=== PATIENT | male | born 2000 | race Caucasian/White ===

== ENCOUNTER 2025-01-31 14:00 | Emergency (ER) | payer SELFPAY ==
--- OUTSIDE RECORDS SUMMARY | 2025-01-31 14:07 | XMS_ITS | Encounter Summary ---
Author Organization [facility] Address [address] [place] [address] Care Team Providers Care Cemetery Counselor Name Role Phone Martha Goodwin MD Primary Care Provider [phone]- [phone] Encounter Details Date Type Department Care Team (Latest Contact Info) Description 02/28/2007 Outpatient Historical [facility] Family Medicine- [place] [address] [place] [phone] Josy Garcia MD NO ADDRESS ON FILE Acute Upper Respiratory Infections of Unspecified Site (Primary Dx) Social History Tobacco Use Types Packs/Day Years Used Date Smoking Tobacco: Never Assessed Sex and Gender Information Value Date Recorded Sex Assigned at Not on file 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
--- OUTSIDE RECORDS SUMMARY | 2025-01-31 14:07 | XMS_ITS | Clinical Summary ---
Author Organization [facility] Address [address] [place] [address] Care Team Providers Care Middleware Systems Architect Name Role Phone Martha Goodwin MD Primary Care Provider [phone]- [phone] Allergies Active Allergy Reactions Criticality Noted Date Comments Egg Swelling,Abdominal Pain Low 08/27/2008 Yeast, Dried Swelling,Abdominal Pain Low 08/27/2008 Medications atenolol (TENORMIN) 25 mg tabletIndications :Heart palpitations Take 1 Tablet (25 mg) by mouth 3 times daily. 270 Tablet 3 11/27/2018 Active Active Problems Problem Noted Date Diagnosed Date Alternative medicine 08/29/2008 Overview (08/29/2008): Family prefers naturopathy and/or chiropractor first line. SOB (shortness of breath) 05/14/2008 Chest pain 05/14/2008 Immunizations Immunization Administration Dates Next Due (TDVAX)(7 YRS UP) TETANUS AN D DIPHTHERIA TOXOIDS, ADSORBED (2 LF OF TETANUS TOXOID AND 2 LF OF DIPHTHERIA TOXOID), 0.5ML (PF), IM 10/19/2009 Family History Medical History Relation Name Comments Thyroid Disease Mother Relation Name Status Comments Mother Social History Tobacco Use Types Packs/Day Years Used Date Smoking Tobacco: Never Alcohol Use Standard Drinks/Week Comments No 0 (1 standard drink = 0.6 oz pur e alcohol) Sex and Gender Information Value Date Recorded Sex Assigned at Not on file 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 Gender Identity Not on file Sexual Orientation Not on file Occupation Industry Job Start Date Job End Date student, 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 Not on file Not on file Not o n file Last Filed Vital Signs Vital Sign Reading Time Taken Comments Blood Pressure 98/50 11/27/2018 3:43 PM CDT Pulse 52 11/27/2018 3:43 PM CDT Temperature 36.5 C (97.7 F) 11/27/2018 3:43 PM CDT Respiratory Rate 13 11/27/2018 3:43 PM CDT Oxygen Saturation 97% 11/27/2018 3:43 PM CDT Inhaled Oxygen Concentration - - Weight 70.8 kg (156 lb) 11/27/2018 3:43 PM CDT Height 174 cm (5' 8.5 ) 11/27/2018 3:43 PM CDT Body Mass Index 23.37 11/27/2018 3:43 PM CDT Plan of Treatment Health Maintenance Due Date Last Done Comments HPV VACCINES (1 - Male 3-dose series) 2013 DTAP/TDAP/TD VACCINES (1 - Tdap) 2017 10/20/19 10 HEPATITIS B VACCINES (1 of 3 - 19+ 3-dose series) 04/15 INFLUENZA VACCINE (#1) 2025 Care Teams Middleware Systems Architect Relationship Specialty Start Date End Date Martha Goodwin MD [address] [facility] [address] [place] [address] PCP - General Family Practice 08/03/13
--- OUTSIDE RECORDS SUMMARY | 2025-01-31 14:07 | XMS_ITS | Encounter Summary ---
Author Organization [facility] Address [address] [place] [address] Care Team Providers Care Roving Weight Gauger Name Role Phone Martha Goodwin MD Primary Care Provider [phone]- [phone] Encounter Details Date Type Department Care Team (Latest Contact Info) Description 04/16/2000 Outpatient Historical [facility] Family Medicine- [place] [address] [place] [phone] Jose Antonio MD [address] [facility] [address] [place] [phone] Acute upper respiratory infections of unspecified site (Primary Dx) Social History Tobacco Use Types Packs/Day Years Used Date Smoking Tobacco: Never Assessed Sex and Gender Information Value Date Recorded Sex Assigned at Not on file 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
--- OUTSIDE RECORDS SUMMARY | 2025-01-31 14:07 | XMS_ITS | Encounter Summary ---
Author Organization [facility] Address [address] [place] [address] Care Team Providers Care Management Development Specialist Name Role Phone Martha Goodwin MD Primary Care Provider [phone]- [phone] Encounter Details Date Type Department Care Team (Latest Contact Info) Description 04/20/2003 Outpatient Historical [facility] Family Medicine- [place] [address] [place], [place] [phone] Gee Espinosa, NO ADDRESS ON FILE ACUTE URI NOS (Primary Dx) Social History Tobacco Use Types Packs/Day Years Used Date Smoking Tobacco: Never Assessed Sex and Gender Information Value Date Recorded Sex Assigned at Not on file 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
--- OUTSIDE RECORDS SUMMARY | 2025-01-31 14:07 | XMS_ITS | Encounter Summary ---
Author Organization [facility] Address [address] [place] [address] Care Team Providers Care Track Car Operator Name Role Phone Martha Goodwin MD Primary Care Provider [phone]- [phone] Encounter Details Date Type Department Care Team (Latest Contact Info) Description 11/22/2006 Outpatient Historical [facility] Medicine- [address] [phone] Kwan Acosta PA NO ADDRESS ON FILE Other Malaise and Fatigue (Primary Dx); Insect Bite NEC-Infected Social History Tobacco Use Types Packs/Day Years Used Date Smoking Tobacco: Never Assessed Sex and Gender Information Value Date Recorded Sex Assigned at Not on file 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
--- OUTSIDE RECORDS SUMMARY | 2025-01-31 14:07 | XMS_ITS | Encounter Summary ---
Author Organization [facility] Address [address] [place] [address] Care Team Providers Care It Training Specialist Name Role Phone Martha Goodwin MD Primary Care Provider [phone]- [phone] Encounter Details Date Type Department Care Team (Latest Contact Info) Description 1998 Outpatient Historical [facility] Medicine [address] [phone] Shahnaz Nur MD [address] [place] [phone] Abdominal pain, unspecified site (Primary Dx) Social History Tobacco Use Types Packs/Day Years Used Date Smoking Tobacco: Never Assessed Sex and Gender Information Value Date Recorded Sex Assigned at Not on file 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
--- OUTSIDE RECORDS SUMMARY | 2025-01-31 14:07 | XMS_ITS | Encounter Summary ---
Author Organization [facility] Address [address] [place] [address] Care Team Providers Care Api Architect Name Role Phone Martha Goodwin MD Primary Care Provider [phone]- [phone] Encounter Details Date Type Department Care Team (Latest Contact Info) Description 1998 Outpatient Historical [facility] Medicine [address] [phone] Shahnaz Nur MD [address] [place] [phone] Routine child health exam (Primary Dx) Social History Tobacco Use Types Packs/Day Years Used Date Smoking Tobacco: Never Assessed Sex and Gender Information Value Date Recorded Sex Assigned at Not on file 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
--- OUTSIDE RECORDS SUMMARY | 2025-01-31 14:07 | XMS_ITS | Clinical Summary ---
Author Organization [facility] Address [address] [facility] [place] [address] Phone Care Team Providers Care Porcelain Finish Sprayer Name Role Phone Candace Field DO Primary Care Provider [phone] Allergies Active Allergy Reactions Criticality Noted Date Comments Egg Swelling,Abdominal Pain Low 08/27/2008 Yeast, Dried Swelling,Abdominal Pain Low 08/27/2008 Medications atenolol (TENORMIN) 25 mg Oral tablet Take 25 mg by mouth see administration instructions. Take 50 mg in am and 25 mg in pm Active atenoloL (TENORMIN) 25 mg tabletIndication s:Heart palpitations Take 1 Tablet (25 mg) by mouth 3 times daily. 270 Tablet 3 11/28/19 19 Active Active Problems Problem Noted Date Diagnosed Date Fatigue 03/20/2010 Atypical chest pain 03/20/2010 Palpitations 03/16/2010 Alternative medicine 08/29/2008 Overview (01/19/2021): Family prefers naturopathy and/or chiropractor first line. 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
[2025-01-31 14:12] VITALS: BP 117/75; PULSE 54; RESP 16; TEMP 36.6; O2SAT 96; BMI 24.3
--- NOTE | 2025-01-31 14:24 | XRR_ITS ---
PROCEDURE INFORMATION: Exam: XR Chest Exam date and time: 01/31/2025 2:34 PM Age: 24 years old Clinical indication: Screening exam; Other screening; Additional info: Foreign body (fish bone) imbedded into RT side of neck (just under RT mandibular angle)/tonsil area TECHNIQUE: Imaging protocol: Radiologic exam of the chest. Views: 1 view. COMPARISON: CR XR chest 2V* [id number] 06/23/2018 9:15 PM FINDINGS: Lungs: Unremarkable. No consolidation. Pleural spaces: Unremarkable. No pleural effusion. No pneumothorax. Heart/Mediastinum: Unremarkable. No cardiomegaly. Bones/joints: Unremarkable. XR/XR chest 1V [id number] IMPRESSION: No acute findings.
--- NOTE | 2025-01-31 14:24 | XRR_ITS ---
PROCEDURE INFORMATION: Exam: XR Soft Tissue Neck Exam date and time: 01/31/2025 2:34 PM Age: 24 years old Clinical indication: Screening exam; Other; Fb; Additional info: Foreign body (fish bone) imbedded into RT side of neck (just under RT mandibular angle)/tonsil area TECHNIQUE: Imaging protocol: Radiologic exam of the soft tissues of the neck. COMPARISON: CR XR chest 2V* [id number] 06/23/2018 9:15 PM FINDINGS: Airway: Normal. No abnormal narrowing. Soft tissues: Normal. Normal epiglottis. Bones/joints: Unremarkable. XR/XR soft tissue neck [id number] IMPRESSION: No acute findings.
[2025-01-31] MEDS: cetacaine Spray 5 gm Can 1 SPRAY TOPICAL (16:19)
[2025-01-31 16:20] VITALS: PULSE 62; O2SAT 97
--- NOTE | 2025-01-31 18:22 | W.ED.SKABFB ---
HPI - Skin/Abscess/Foreign Bdy General: Chief complaint: Airway/Esophagus Foreign Body Stated complaint: fish bone stuck in throat Time Seen by Provider: 01/31/25 14:22 History of Present Illness: Rubin Worley presents to the emergency department with a complaint of throat pain and difficulty swallowing. The patient reports feeling a drag in his throat, specifically on the right side when attempting to swallow. He states the onset of symptoms was last night, suggesting he may have ingested something that caused the issue. The patient previously sought care at [facility], where they performed an examination but reportedly saw nothing unusual. Mr. Worley describes the sensation as being around the corner in his throat. He points to an area just below his tonsil as the location of discomfort. The patient reports being able to control his gag reflex well, which may aid in further examination. Related Data Home Medications ?Medication ?Instructions ?Recorded ?Confirmed No Known Home Medications 01/31/25 01/31/25 Allergies Allergy/AdvReac Type Severity Reaction Status Date / Time No Known Allergies Allergy Verified 01/31/25 14:16 Review of Systems General: Reports: 10 or more systems reviewed and unremarkable except in HPI and below Physical Exam Const: COMMON NORMALS: no acute distress, patient oriented x3, healthy appearing, alert and well nourished HENMT: COMMON NORMALS: normocephalic HEAD & SCALP: normocephalic THROAT: tonsils not normal (Right tonsil with erythema. Foreign body able to be palpated but seen) Eye: COMMON NORMALS: EOMs intact bilaterally Neck/C-Spine: COMMON NORMALS: full ROM and supple Resp: COMMON NORMALS: normal respiratory effort, No retractions and clear to auscultation bilaterally AUSCULTATION: clear to auscultation bilaterally Cardio: COMMON NORMALS: regular rate, regular rhythm, No gallops present (Cardio) and No murmurs present (Cardio) RATE: regular rate RHYTHM: regular rhythm GI: COMMON NORMALS: Soft to palpation and non-tender PALPATION: Yes Soft to palpation Extremity: GENERAL: Yes normal exam except as noted Neuro: COMMON NORMALS: patient oriented x3 SENSORIUM/ORIENTATION: Yes alert Skin: COMMON NORMALS: no rashes or lesions noted GENERAL SKIN EXAM: no rashes or lesions noted Procedures Foreign Body Removal Site: oral (Right tonsil) Sedation/Analgesia: other (Cetacaine) Technique: manual removal, removal with forceps and other (Suction) Confirmed by:: other (No foreign body was able to be removed) Complications: pain and bleeding Post-procedure exam: awake, alert Course Vital Signs: Vital signs: Vital Signs Temperature 97.8 F 01/31/25 14:12 Pulse Rate 62 01/31/25 16:20 Respiratory Rate 16 01/31/25 14:12 Blood Pressure 117/75 01/31/25 14:12 Pulse Oximetry 97 01/31/25 16:20 Oxygen Delivery Me thod Room Air 01/31/25 16:20 MDM - Skin/Abscess/Foreign Bdy Medicial Decision Making Suspected foreign body in throat: Patient reports feeling a drag and pain on the right side when swallowing, which began last night. Previous examination at [facility] was inconclusive. On physical examination, the foreign body was not directly visualized, but there is suspicion of its presence just posterior to the tonsil. Differential diagnosis includes fishbone, inflamed tonsil, or other ingested foreign body. - X-ray negative for foreign body, likely secondary to foreign body being obscured by bones of face and jaw - Benzocaine was applied to reduce gag reflex - Perform direct laryngoscopy with video laryngoscope - Informed patient of risks and benefits of sedation and intervention if foreign body is confirmed - No foreign body removed. Offered ENT consultation. He declined this as he did not want to incur additional cough. He opted for conservative outpatient management with observation and return if abscess or other negative sequelae of the foreign body develops. Lab Data Radiology Impressions Chest X-Ray 01/31/25 14:24 IMPRESSION: No acute findings. Soft Tissue Neck X-Ray 01/31/25 14:24 IMPRESSION: No acute findings. ADDENDUM: 01/31/25 1642 No radiopaque foreign bodies are seen. All radiology interpretation(s) finalized by discharge Discharge Plan Discharge Patient Disposition: Home Clinical Impression: Foreign body (FB) in soft tissue Condition: Stable Prescriptions: No Action No Known Home Medications Discharge Orders: Discharge ED (Routine); Ordered 01/31/25 Ordered By: Tu Law Discharge Diet: Advance as tolerated Discharge Activity: Resume usual activity Patient Instructions: Opioid Safety, Pain Management, Patient Portal & Deng Instructions Activity Restrictions/Additional Instructions: Please follow your primary care physician for any persistent symptoms. Return to the emergency department with any new or worsening symptoms. Print Language: Dutch Coding Level of Care Code ED Shadowgraph Operator for Moreg Donnell
== END 2025-01-31 17:03 | disposition home or self-care (01) ==
PROVIDERS: Emergency Provider General Practice
DX: M79.5 Residual foreign body in soft tissue (principal)
CPT/HCPCS: 70360; 71045; 99284; J9999